=== PATIENT | female | born 1940 | race Two or more races ===

== ENCOUNTER 2017-09-09 09:12 | Emergency (ER) | payer OTHER ==
[~2017-09-09] VITALS: Ht 157.5 cm; Wt 56.7 kg
[~2017-09-09 09:12] MED LIST: INTESTINEX680 MG PO
[2017-09-09] MEDS ORDERED: SIMVASTATIN20 MG PO (09:27)
[2017-09-09] MEDS ORDERED: CILOSTAZOL50 MG PO (09:28)
== END 2017-09-09 11:18 | disposition home or self-care (01) ==
LOC: ER 09:12
DX: M75.81 Other shoulder lesions, right shoulder (principal)